=== PATIENT | male | born 1955 | race Caucasian/White ===

== ENCOUNTER 2023-04-04 23:10 | Emergency (ER) | payer MEDICARE ==
[2023-04-05] LABS: #Basophils 0.1 thou/uL (0.0-0.2); #Eosinphils 0.8 thou/uL (0.0-0.7); %Basophils 0.5 % (0.0-1.0); %Eosinophils 6.6 % (0.0-10.0); %Lymphocytes 28.8 % (21.0-51.0); %Monocytes 8.2 % (0.0-10.0); %Neutrophils 55.7 % (42.0-75.0); Hematocrit 38.4 % (42.0-52.0); Hemoglobin 12.9 g/dL (14.0-18.0); Mean Corpuscular HGB CONC 33.6 g/dL (32.0-36.0); Mean Corpuscular Hemoglobin 29.7 pg (27.0-31.0); Mean Corpuscular Volume 88.3 fl (78.0-98.0); Mean Platelet Volume 8.9 fL (7.4-10.4); Platelet Count 344 10x3/uL (130-400); RBC Distribution Width 14.8 % (11.5-14.5); Red Blood Cell (RBC) Count 4.35 mill/uL (4.70-6.10); White Blood Cell (WBC) Count 12.6 10x3/uL (4.8-10.8)
[2023-04-05 00:35] LABS: Troponin I Less than 0.010 ng/mL (< 0.028)
[2023-04-05 00:44] LABS: ALT (SGPT) 10 U/L (8-55); AST (SGOT) 23 U/L (5-34); Albumin 3.2 g/dL (3.4-4.8); Alkaline Phosphatase 89 U/L (40-110); Anion Gap 14 mmol/L (10-20); BUN (Urea Nitrogen) 9 mg/dL (8.4-25.7); Bilirubin, Total 0.5 mg/dL (0.2-1.2); Calc. Creatinine Clearance 0 mL/min (70-130); Calcium 9.1 mg/dL (7.8-10.44); Carbon Dioxide 26 mmol/L (23-31); Chloride 103 mmol/L (98-107); Estimated GFR 102; Globulin 4.5 g/dL (2.4-3.5); Glucose 96 mg/dL (80-115); Lipase 17 U/L (8-78); Potassium 3.7 mmol/L (3.5-5.1); Protein, Total 7.7 g/dL (5.8-8.1); Sodium 139 mmol/L (136-145)
[2023-04-05 01:32] LABS: Bacteria/HPF 4+ HPF (None Seen); Bilirubin Negative (Negative); Blood, Urine 2+ (Negative); CAUTI Indications for Culture Urological Procedure; Clarity Extra Turbid (Clear); Glucose, Urine (Dipstick) Normal (Negative); Ketone, Urine Negative (Negative); Leukocyte 500 Leu/uL (Negative); Nitrite 1+ (Negative); Protein, Urine (Dipstick) 200 mg/dL (Neg-Trace); Squamous Epithelial None Seen HPF (0-3); Urobilinogen Normal mg/dL (Less than 2); WBC/HPF Greater than 50 HPF (0-3)
[2023-04-05 01:36] LABS: Urine Culture Reflex Yes Yes
[2023-04-05] MEDS ORDERED: cefTRIAXone (ROCEPHIN) 1 GM VIAL ONE (02:47)
[2023-04-05] MEDS ORDERED: Sodium Chloride 0.9% 100 ML ONE ×2 (02:47)
[2023-04-05] MEDS ORDERED: Iopamidol-370 76% 500 ML MDV (1 ML CHARGE) ONE (14:15)
== END 2023-04-05 04:55 ==
LOC: ERS 23:10
DX: N39.0 Urinary tract infection, site not specified (principal); K59.00 Constipation, unspecified; M79.604 Pain in right leg; M79.605 Pain in left leg; Z79.82 Long term (current) use of aspirin
CPT/HCPCS: 71275; 74177; 80053; 81001; 83690; 84484; 85025; 87077; 87086; 87186; 93005; 96365; J0696; J3490; Q9967